=== PATIENT | female | born 1945 | race Caucasian/White ===

== ENCOUNTER 2017-08-19 10:57 | Emergency (ER) | payer BC ==
[~2017-08-19] VITALS: Wt 80.0 kg
[~2017-08-19 10:57] MED LIST: ASPI-664 PO; BEN50 PO; BENA40TA41 PO; HYDR25TA6 PO; METO-429 PO; NAPR375T PO
[2017-08-19] MEDS ORDERED: SOD CHLORIDE 0.9% 1,000 ML IV STA (13:16)
[2017-08-19] MEDS ORDERED: ONDANSETRON 4 MG INJ IV STA (13:16)
[2017-08-19] MEDS ORDERED: LIDOCAINE/MYLANTA 40 ML BTL PO STA (13:16)
[2017-08-19] MEDS ORDERED: KETOROLAC 15 MG INJ IV STA (13:16)
[2017-08-19] MEDS ORDERED: BELLADONNA/PHENOBARBITAL TAB PO STA (13:16)
--- NOTE | 2017-08-19 13:51 | RADRPT ---
PROCEDURE: CT Abdomen and Pelvis without contrast. CLINICAL INDICATION: Abdominal and pelvic pain. TECHNIQUE: CT scan of the abdomen and pelvis without contrast was performed. Coronal and sagittal reformatted images were obtained from the axial source images. Images were reviewed on a high-resolu [employer] PACS workstation. Total exam DLP is 930.48 mGy-cm. CTDIvol is 17.07 mGy. One or more of the f ollowing dose reduction techniques were used: Automated exposure control, adjustment of the mA and/o r kV according to patient size, use of iterative reconstruction technique. DICOM images are availabl e. COMPARISON: None. FINDINGS: The lung bases are normal. There is no pleural effusion. The liver is normal in size and attenuation. There is no focal hepatic lesion. Gallstones are present in the gallbladder. There is no gallbladder wall thickening or fluid around t he gallbladder. The bile ducts are normal. The spleen is normal in size. There is no focal splenic lesion. Both adrenals are normal with no enlargement or mass. The pancreas is unremarkable with no mass or evidence of pancreatitis. There is no renal mass or hydronephrosis. There is no renal calculus or ureteral calculus. The abdominal aorta is not dilated. There is calcification in the aorta consistent with atherosclero sis. There is no retroperitoneal lymphadenopathy or mass. There is no pelvic lymphadenopathy or mass. The bladder and distal ureters are normal. The periappendiceal region is unremarkable with no evidence of appendicitis. The appendix is well se en and appears normal. The bowel and mesentery are normal. There is no free fluid or free gas. There are degenerative changes of the spine. There is no fracture or lytic lesion. IMPRESSION: 1. Gallstones in the gallbladder. No evidence of cholecystitis. 2. Atherosclerosis. 3. Degenerative changes of the spine. 4. Otherwise unremarkable CT scan of the abdomen and pelvis. RPTAT: QQ .Jignesh Smiley MD, MD Date Time Electronically viewed and signed by .Jignesh Smiley MD, on 08/19/2017 13:51 .R/
--- NOTE | 2017-08-19 13:54 | ERD ---
ER Documentation Chief Complaint Chief Complaint ABD PAIN, ONSET THIS MORNING, VOMITING HPI 71-year-old woman complains of right upper quadrant abdominal cramping since this morning with a couple episodes of clear nonbloody nonbilious emesis. She states she has had similar episodes in the past. She states the pain is nonexertional nonradiating, she has had no chest pain or shortness of breath, no weight loss, no fevers or chills, no blood per rectum or melena. ROS All systems reviewed and are negative except as per history of present illness. Medications Home Meds Active Scripts Ondansetron Hcl* (Zofran*) 4 Mg Tablet, 4 MG PO Q8H Y for NAUSEA AND/OR VOMITING , #15 TAB Prov:IGLESIA GHOSH MD 08/19/17 Ibuprofen* (Ibuprofen*) 600 Mg Tablet, 600 MG PO Q8 for PAIN AND/OR INFLAMMATION , #30 TAB Prov:IGLESIA GHOSH MD 08/19/17 Oxycodone HCl/Acetaminophen (Percocet 5-325 mg Tablet) 1 Each Tablet, 1 EACH PO TID for PAIN, #9 TAB Prov:IGLESIA GHOSH MD 08/19/17 Diphenhydramine Hcl* (Benadryl*) 50 Mg Cap, 50 MG PO Q6H Y for ITCHING/RASH, # 30 CAP Prov:ALYSHA GOULD PA-C 06/25/16 Reported Medications Aspirin* (Aspirin* EC) 81 Mg Tablet.dr, 81 MG PO DAILY, TAB 08/14/15 Naproxen* (Naprosyn*) 375 Mg Tablet, 375 MG PO BID, TAB 08/14/15 Hydrochlorothiazide* (Hydrochlorothiazide*) 25 Mg Tab, 25 MG PO DAILY, TAB 08/14/15 Benazepril Hcl* (Benazepril Hcl*) 40 Mg Tablet, 40 MG PO DAILY, TAB 08/14/15 Metoprolol Tartrate* (Lopressor*) 50 Mg Tab, 50 MG PO DAILY, TAB 08/14/15 Allergies Allergies: Coded Allergies: No Known Allergy (Unverified , 08/19/17) PMhx/Soc Hypertension, gastritis History of Surgery: Yes (HYSTERECTOMY) Anesthesia Reaction: No Hx Neurological Disorder: No Hx Respiratory Disorders: No Hx Cardiac Disorders: Yes (HTN) Hx Psychiatric Problems: No Hx Miscellaneous Medical Probl: Yes (ARTHRITIS) Hx Alcohol Use: No Hx Substance Use: No Hx Tobacco Use: No FmHx Family History: No diabetes Physical Exam Vitals Vital Signs Date Time Temp Pulse Resp B/P Pulse Ox O2 Delivery O2 Flow Rate FiO2 08/19/17 15:59 98.3 80 18 151/63 98 Room Air 08/19/17 11:00 97.8 67 17 174/74 100 Physical Exam GENERAL: Well-developed, well-nourished, appears dehydrated, afebrile, mild discomfort HEENT: Dry mucous membranes, pink conjunctiva, no cervical spine tenderness or step-off deformities, no goiter, no jaundice or icterus, extraocular movements intact without pain. No submandibular induration, and no pharyngeal erythema NEURO: Alert and oriented 3, cranial nerves II through XII intact bilaterally, pupils equal round reactive to light, no focal deficits or facial asymmetry, sensation intact distally Strength 5/5 in upper and lower extremities bilaterally CARDIAC: Regular rate and rhythm, no murmurs rubs or gallops LUNGS: Clear bilaterally no wheezing crackles or stridor ABDOMEN: Soft nontender, no guarding, no rigidity, no rebound, no psoas sign no obturator sign. Normoactive bowel sounds SKIN: Warm and dry to touch, no abrasions, contusions, or hematomas, no lacerations, no ecchymosis, no target lesions, and without ulcers EXTREMITIES: No clubbing cyanosis or edema, calves are bilaterally symmetrical, no Homans sign, no popliteal cord sign. Distal pulses equal and bilateral PSYCH: Normal affect without agitation or irritability Result Diagram: 08/19/17 1355 08/19/17 1355 Results 24 hrs Laboratory Tests Test 08/19/17 13:31 08/19/17 13:55 Urine Color YELLOW Urine Clarity CLEAR Urine pH 6.0 Urine Specific [place] 1.019 Urine Ketones TRACEmg/dL Urine Nitrite NEGATIVEmg/dL Urine Bilirubin NEGATIVEmg/dL Urine Urobilinogen 1+mg/dL Urine Leukocyte Esterase NEGATIVELeu/ul Urine Microscopic RBC 45/HPF Urine Microscopic WBC 1/HPF Urine Hemoglobin 1+mg/dL Urine Glucose NEGATIVEmg/dL Urine Total Protein NEGATIVEmg/dl White Blood Count 12.710^3/ul Red Blood Count 4.2210^6/ul Hemoglobin 11.7g/dl Hematocrit 35.5% Mean Corpuscular Volume 84.1fl Mean Corpuscular Hemoglobin 27.7pg Mean Corpuscular Hemoglobin Concent 33.0g/dl Red Cell Distribution Width 14.8% Platelet Count 15956^3/UL Mean Platelet Volume 9.3fl Neutrophils % 84.5% Lymphocytes % 10.4% Monocytes % 4.0% Eosinophils % 0.0% Basophils % 0.3% Nucleated Red Blood Cells % 0.0/100WBC Neutrophils # 10.810^3/ul Lymphocytes # 1.310^3/ul Monocytes # 0.510^3/ul Eosinophils # 0.010^3/ul Basophils # 0.010^3/ul Nucleated Red Blood Cells # 0.010^3/ul Sodium Level 144mmol/L Potassium Level 3.5mmol/L Chloride Level 104mmol/L Carbon Dioxide Level 28mmol/L Anion Gap 16 Blood Urea Nitrogen 26mg/dl Creatinine 0.99mg/dl Glucose Level 150mg/dl Calcium Level 10.4mg/dl Total Bilirubin 0.4mg/dl Direct Bilirubin 0.00mg/dl Indirect Bilirubin 0.4mg/dl Aspartate Amino Transf (AST/SGOT) 42IU/L Alanine Aminotransferase (ALT/SGPT) 37IU/L Alkaline Phosphatase 165IU/L Total Protein 8.2g/dl Albumin 4.1g/dl Globulin 4.10g/dl Albumin/Globulin Ratio 1.00 Lipase 192U/L Current Medications Medications (Trade) Dose Ordered Sig/Zulma Route PRN Reason Start Time Stop Time Status Last Admin Dose Admin Sodium Chloride (NS) 1,000 ml @ 1,000 mls/hr Q1H STAT IV 08/19/17 13:16 08/19/17 14:15 DC 08/19/17 13:49 Ondansetron HCl (Zofran Inj) 4 mg ONCE STAT IV 08/19/17 13:16 08/19/17 13:18 DC 08/19/17 13:49 Miscellaneous Medication (Gi Cocktail (2)) 40 ml ONCE STAT PO 08/19/17 13:16 08/19/17 13:18 DC 08/19/17 13:49 Belladonna/ Phenobarbital () 2 tab ONCE STAT PO 08/19/17 13:16 08/19/17 13:18 DC 08/19/17 13:50 Ketorolac Tromethamine (Toradol) 15 mg ONCE STAT IV 08/19/17 13:16 08/19/17 13:18 DC 08/19/17 13:49 Procedures/MDM IV line was established patient was placed on first officer and flight instructor rhythm strip revealed a sinus rhythm at about 80 bpm with upright P and T waves. Patient was afebrile I administered 1 L normal saline intravenously, Toradol 15 mg IV, Zofran 4 mg IV , GI cocktail [address] scan of the abdomen and pelvis was performed, results:IMPRESSION: 1. Gallstones in the gallbladder. No evidence of cholecystitis. 2. Atherosclerosis. 3. Degenerative changes of the spine. 4. Otherwise unremarkable CT scan of the abdomen and pelvis. CBC reveals a mild leukocytosis, electrolytes revealed dehydration with an increased BUN/creatinine ratio, liver function tests reveals elevated alkaline phosphatase 165, otherwise unremarkable, troponin negative, urinalysis negative for infection. Patient was tolerating p.o. in the emergency room and her pain was completely controlled, her vital signs remained normal and she is afebrile. She does have cholelithiasis although I do not suspect acute cholecystitis. I told her and her daughter who was at the bedside to return in 8 hours for repeat abdominal examination and reevaluation or earlier should she develop more pain, fever, or continued vomiting. Differential diagnoses considered, included but not limited to acute coronary syndrome, pulmonary embolism, aortic dissection, abdominal aortic aneurysm, sepsis, stroke, meningitis, encephalitis, pneumonia, appendicitis, cholecystitis , bowel obstruction, pyelonephritis, nephrolithiasis, cystitis, as well as metabolic, hematologic, and electrolyte abnormalities. As well as abscess, cellulitis, fractures, and dislocations. Patient feels much better at this time, and vital signs are normal, symptoms have improved. I did give strict instructions to return to the ED if symptoms continue or worsen, patient will otherwise follow-up with primary care physician. Patient understood instructions and agreed to plan. Disclaimer: Inadvertent spelling and grammatical errors are likely due to EHR/ dictation software use and do not reflect on the overall quality of patient care. Also, please note that the electronic time recorded on this note does not necessarily reflect the actual time of the patient encounter. Departure Diagnosis: Primary Impression: Cholelithiasis Cholelithiasis location: gallbladder Cholecystitis presence: without cholecystitis Biliary obstruction: without biliary obstruction Qualified Code : K80.20 - Calculus of gallbladder without cholecystitis without obstruction Additional Impression: Dehydration Condition: Good IGLESIA GHOSH MD Aug 19, 2017 13:54
[2017-08-19 14:06] LABS: ADD UMIC YES; UR ASCORBIC ACID 40 mg/dL (NEGATIVE); UR BILIRUBIN (Dip) NEGATIVE (NEGATIVE); UR BLOOD (Dip) 1+ mg/dL (NEGATIVE); UR CLARITY CLEAR (CLEAR); UR COLOR YELLOW (YELLOW); UR GLUCOSE (Dip) NEGATIVE (NEGATIVE); UR KETONES (Dip) TRACE mg/dL (NEGATIVE); UR LEUKOCYTE ESTERASE (Dip) NEGATIVE Leu/ul (NEGATIVE); UR NITRITE (Dip) NEGATIVE (NEGATIVE); UR RBC 45 /HPF (0-5); UR SPECIFIC GRAVITY (Dip) 1.019 (1.003-1.030); UR TOTAL PROTEIN (Dip) NEGATIVE (NEGATIVE); UR UROBILINOGEN (Dip) 1+ mg/dL (NEGATIVE)
[2017-08-19 14:10] LABS: BASOPHILS % 0.3 % (0.0-2.0); HEMATOCRIT 35.5 % (37.0-47.0); HEMOGLOBIN 11.7 g/dl (12.0-16.0); LYMPHOCYTES # 1.3 10^3/ul (0.8-2.9); LYMPHOCYTES % 10.4 % (15.0-51.0); MEAN CORPUSCULAR HEMOGLOBIN 27.7 pg (29.0-33.0); MEAN CORPUSCULAR VOLUME 84.1 fl (82.0-101.0); MEAN PLATELET VOLUME 9.3 fl (7.4-10.4); MONOCYTE # 0.5 10^3/ul (0.3-0.9); NEUTROPHIL # 10.8 10^3/ul (1.6-7.5); NEUTROPHILS % 84.5 % (39.0-77.0); PLATELET COUNT 285 10^3/UL (140-415); RED BLOOD COUNT 4.22 10^6/ul (4.20-5.40); RED CELL DISTRIBUTION WIDTH 14.8 % (11.5-14.5); WHITE BLOOD COUNT 12.7 10^3/ul (4.8-10.8)
[2017-08-19 14:25] LABS: ALBUMIN 4.1 g/dl (3.3-4.9); BILIRUBIN,INDIRECT 0.4 mg/dl (0-1.1); BILIRUBIN,TOTAL 0.4 mg/dl (0.2-1.3); CALCIUM 10.4 mg/dl (8.4-10.2); CREATININE 0.99 mg/dl (0.44-1.00); POTASSIUM 3.5 mmol/L (3.5-5.1); TOTAL PROTEIN 8.2 g/dl (6.1-8.1)
[2017-08-19] MEDS ORDERED: OXYC-279 PO (15:32)
[2017-08-19] MEDS ORDERED: ONDA4TAB8 PO (15:32)
[2017-08-19] MEDS ORDERED: IBUP-1542 PO (15:32)
[2017-08-19 15:59] VITALS: BP 151/63; PULSE 80; RESP 18; TEMP 98.3
== END 2017-08-19 16:25 | disposition home or self-care (01) ==
LOC: E/R 10:57
DX: K80.20 Calculus of gallbladder without cholecystitis without obstruction (principal); E86.0 Dehydration; I10 Essential (primary) hypertension; Z79.82 Long term (current) use of aspirin
CPT/HCPCS: 74176; 80053; 81001; 83690; 85025; J1885; J2405; J7030; Z7610; 36415; 96374; 96375

== ENCOUNTER 2018-05-18 08:31 | Emergency (ER) | END 2018-05-18 13:59 | disposition home or self-care (01) ==